=== PATIENT | male | born 1950 | race Caucasian/White ===

== ENCOUNTER 2021-07-05 13:03 | Inpatient (IN) | payer OTHER ==
[~2021-07-05] VITALS: Ht 172.7 cm; Wt 63.1 kg
[2021-07-05] MEDS ORDERED: CYMBALTA30 MG PO (14:37)
[2021-07-05] MEDS ORDERED: B-1100 M1 PO (14:38)
[2021-07-05 18:34] VITALS: BP 151/66
[2021-07-05 19:11] LABS: BILIRUBIN Negative (Negative); BLOOD Negative (Negative); CLARITY Clear (Clear); COLOR Yellow (Yellow); GLUCOSE Negative (Negative); KETONE Trace (Negative); LEUKO ESTERASE Negative (Negative); NITRITE Negative (Negative); PH 6.5 (4.5-8.0); SPECIFIC GRAVITY 1.015 (1.001-1.030)
[2021-07-05 19:43] LABS: BACTERIA TRACE; EPITHELIAL CELLS 0-2; RBC 0-2 rbc/hpf (0-2); WBC 0-2 wbc/hpf (0-5)
[2021-07-05 20:00] VITALS: BP 154/76
[2021-07-06 09:46] VITALS: BP 152/77
[2021-07-06 10:27] VITALS: BP 100/58
[2021-07-06 20:00] VITALS: BP 139/65
[2021-07-07 06:15] LABS: BASO # 0.1 10*3/uL (0.0-0.1); BASO % 0.8 % (0.0-1.0); EOS # 0.4 10*3/uL (0.0-0.4); EOS % 4.8 % (1.0-4.0); HEMATOCRIT 42.8 % (42.0-52.0); LYMPH # 2.4 10*3/uL (1.3-4.4); LYMPH % 31.2 % (27.0-41.0); MEAN CELL VOLUME 91.8 fl (80.0-94.0); MEAN CORPUSCULAR HGB 31.8 pg (27.0-31.0); MEAN CORPUSCULAR HGB CONC 34.6 g/dl (33.0-37.0); MONO % 12.4 % (3.0-9.0); NEUT # 3.9 10*3/uL (2.3-7.9); NEUT % 50.5 % (47.0-73.0); PLATELET COUNT AUTOMATED 243 10*3/uL (130-400); RED BLOOD COUNT 4.66 10*6/uL (4.50-5.90); WHITE BLOOD COUNT 7.7 10*3/uL (4.8-10.8)
[2021-07-07 06:38] LABS: ALBUMIN 3.4 gm/dl (3.1-4.5); CHLORIDE 107 mmol/L (98-107); SODIUM 138 mmol/L (136-145)
[2021-07-07 06:52] LABS: ALKALINE PHOSPHATASE 80 U/L (45-117); BUN 20 mg/dl (7-24); CHOLESTEROL 151 mg/dL (<200); CREATININE 0.96 mg/dL (0.70-1.30); LDL CHOLESTEROL 103 mg/dL (9-159); SGOT/AST 18 IU/L (3-35); SGPT/ALT 25 U/L (12-78); THYROID STIM HORMONE (HS) 0.948 uIU/ml (0.358-4.75); TOTAL PROTEIN 7.3 gm/dL (6.4-8.2); TRIGLYCERIDES 118 mg/dl (<150)
[2021-07-07 07:13] LABS: VITAMIN D, 25-HYDROXY 38.2 ng/mL (30-100)
[2021-07-07 08:02] VITALS: BP 147/64
[2021-07-07 20:00] VITALS: BP 132/74; BP 143/50
[2021-07-08 07:30] VITALS: BP 140/80
[2021-07-08 19:51] VITALS: BP 136/70
[2021-07-09 07:44] VITALS: BP 130/53
[2021-07-09 20:00] VITALS: BP 152/62
[2021-07-10 07:49] VITALS: BP 153/62
[2021-07-10 20:00] VITALS: BP 147/69
[2021-07-11 08:00] VITALS: BP 117/57
[2021-07-11] MEDS ORDERED: MELATONIN3 MG PO (08:17)
[2021-07-11] MEDS ORDERED: VITAMIN B-1100 M1 PO (08:17)
[2021-07-11] MEDS ORDERED: DULOXETINE HCL30 MG PO (08:17)
[2021-07-11] MEDS ORDERED: MINIPRESS1 M1 PO (08:17)
[2021-07-11] MEDS ORDERED: DULOXETINE HCL60 MG PO (08:17)
[2021-07-11] MEDS ORDERED: LACTULOSE20 GM/30 M PO (10:00)
== END 2021-07-11 12:00 | disposition home or self-care (01) | DRG 885 ==
LOC: 3N 13:03
PROVIDERS: ADMIT Psychiatry & Neurology Psychiatry; ATTEND Psychiatry & Neurology Psychiatry
DX: F33.2 Major depressive disorder, recurrent severe without psychotic features (principal); E11.65 Type 2 diabetes mellitus with hyperglycemia; R45.851 Suicidal ideations; F43.10 Post-traumatic stress disorder, unspecified; Z20.822 Contact with and (suspected) exposure to COVID-19; F17.210 Nicotine dependence, cigarettes, uncomplicated; E11.9 Type 2 diabetes mellitus without complications; Z71.6 Tobacco abuse counseling; Z88.5 Allergy status to narcotic agent; Z88.8 Allergy status to other drugs, medicaments and biological substances; Z88.6 Allergy status to analgesic agent